=== PATIENT | male | born 1935 | race Caucasian/White ===

== ENCOUNTER → 2020-06-21 | Outpatient (CLI) | payer OTHER | END | disposition home or self-care (01) | LOC: RAD 12:23 | PROVIDERS: ATTEND Internal Medicine Nephrology | DX: R13.10 Dysphagia, unspecified (principal); R12 Heartburn | CPT/HCPCS: 74220 ==

== ENCOUNTER 2020-09-10 17:29 | Emergency (ER) | payer MEDICARE, OTHER ==
[~2020-09-10] VITALS: Ht 177.8 cm; Wt 68.0 kg
--- NOTE | 2020-09-10 19:24 | NUR ---
TO ROOM FROM LOBBY.
--- NOTE | 2020-09-10 19:30 | NUR ---
LAB AT BEDSIDE FOR BLOOD.
--- NOTE | 2020-09-10 19:31 | NUR ---
PT C/O GENERALIZED WEAKNESS AND PAIN THAT STARTED TODAY. IS WANTING PAIN MEDICATION.
[2020-09-10 19:37] LABS: BASOPHILS % (AUTO) 0 % (0-1); EOSINOPHILS % (AUTO) 0 % (1-7); LYMPHOCYTES % (AUTO) 11 % (22-44); MEAN CORPUSCULAR HGB CONC 33.1 g/dL (33.2-36.2); MEAN PLATELET VOLUME 7.8 fL (7.4-10.4); MONOCYTES % (AUTO) 9 % (2-9); NEUTROPHILS % (AUTO) 80 % (42-75); PLATELET COUNT 119 x10^3/uL (130-400); RED BLOOD COUNT 4.81 x10^6/uL (4.38-5.82); RED CELL DISTRIBUTION WIDTH 13.9 % (9.4-14.8)
[2020-09-10 19:38] LABS: MD NO
[2020-09-10 19:43] LABS: ANION GAP 2 mmol/L (5-15); CALCIUM 9.1 mg/dL (8.5-10.1); CHLORIDE 109 mmol/L (98-107); CREATININE 0.99 mg/dL (0.7-1.3)
[2020-09-10] MEDS ORDERED: SODIUM CHLORIDE 0.9% 1,000ML IVBOLUS ONE (20:00)
[2020-09-10] MEDS ORDERED: SODIUM CHLORIDE FLUSH 10ML SYR IVF ONE (20:00)
[2020-09-10 20:20] LABS: MICROSCOPIC AUTO
[2020-09-10 20:31] VITALS: BP 125/58
== END 2020-09-10 21:39 | disposition home or self-care (01) ==
LOC: ED 20:38
DX: G20 Parkinson's disease (principal); R53.1 Weakness; R06.02 Shortness of breath; R53.83 Other fatigue
CPT/HCPCS: 36415; 71045; 80048; 81001; 85025; 93005; 96360; 96361; 99285; J7030